=== PATIENT | male | born 1960 ===

== ENCOUNTER 2021-02-21 09:00 | Outpatient (CLI) | payer SELFPAY ==
[2021-02-21 23:47] LABS: SARS-CoV-2 PCR by NAA Not Detected (NotDetected)
== END 2021-02-21 09:01 | disposition home or self-care (01) ==
LOC: LABBT 09:00
PROVIDERS: ATTEND Surgery
DX: Z01.812 Encounter for preprocedural laboratory examination (principal); K60.3 Anal fistula; Z20.822 Contact with and (suspected) exposure to COVID-19
CPT/HCPCS: U0003; U0005

== ENCOUNTER 2021-02-26 11:47 | Day surgery (SDC) | payer OTHER, SELFPAY ==
[2021-02-23 14:31] VITALS: BMI 30.2
[2021-02-26] MEDS ORDERED: ceFAZolin 2 GM/DEX 5% 100 ML BAG ONE (13:10)
[2021-02-26] MEDS ORDERED: Bupivacaine 0.25% HCL 30 ML VIAL ONE (13:20)
[2021-02-26] MEDS ORDERED: Lidocaine 1% w/Epinephrine 1:100K 20 ML VIAL ONE (13:20)
[2021-02-26] MEDS ORDERED: Lidocaine 2% Jelly 5 ML TUBE ONE (13:20)
[2021-02-26] MEDS ORDERED: Fentanyl 100 MCG/2 ML VIAL ONE ×3 (13:31→14:48)
[2021-02-26] MEDS ORDERED: Midazolam HCl 2 mg/2 ml Vial ONE (13:33)
[2021-02-26] MEDS ORDERED: Ondansetron PF 4 MG/2 ML Vial ONE (13:49)
[2021-02-26] MEDS ORDERED: Lidocaine 1% PF 5 ML VIAL ONE (13:49)
[2021-02-26] MEDS ORDERED: diphenhydrAMINE 50 MG/ML VIAL ONE (13:49)
[2021-02-26] MEDS ORDERED: PROPOFOL 200 MG/20 ML VIAL ONE (13:49)
[2021-02-26] MEDS ORDERED: Dexamethasone 20 MG/5 ML VIAL ONE (13:49)
[2021-02-26] MEDS ORDERED: HYDROcodone/Acetaminophen 5/325 mg Tablet ONE (15:50)
== END 2021-02-26 16:20 | disposition home or self-care (01) ==
LOC: SDC 11:47
PROVIDERS: ATTEND Surgery
PROC: 0H88XZZ Division of Buttock Skin, External Approach (ICD-10-PCS; principal; 2021-02-26)
DX: K60.3 Anal fistula (principal); K64.8 Other hemorrhoids; E66.9 Obesity, unspecified; Z68.30 Body mass index [BMI] 30.0-30.9, adult; Z79.899 Other long term (current) drug therapy; Z91.013 Allergy to seafood; Z91.041 Radiographic dye allergy status
CPT/HCPCS: J1100; J1200; J2250; J2405; J2704; J3010; S0020